=== PATIENT | female | born 1995 | race Caucasian/White ===

== ENCOUNTER 2022-12-06 12:22 | Emergency (ER) | payer SELFPAY ==
[~2022-12-06] VITALS: Ht 167.6 cm; Wt 68.0 kg
[2022-12-06 14:22] VITALS: BP 115/94
== END 2022-12-06 14:38 | disposition left against medical advice (07) ==
LOC: ER 12:22
DX: R07.9 Chest pain, unspecified (principal); Z53.21 Procedure and treatment not carried out due to patient leaving prior to being seen by health care provider
CPT/HCPCS: 82962; 99281